=== PATIENT | female | born 1940 | race Caucasian/White ===

== ENCOUNTER 2023-11-30 14:57 | Emergency (ER) | payer BC ==
[2023-11-30 16:46] LABS: Absolute Eosinophils 0.3 K/uL (0-0.5); Absolute Lymphocytes (CBC) 1.8 K/uL (0.7-4.9); Absolute Monocytes 0.6 K/uL (0.1-1.3); Absolute Neutrophil 3.1 K/uL (1.8-8.0); Basophils % 0.7 % (0-1.3); Eosinophils % 4.4 % (0-4.4); Hematocrit 41.4 % (36.0-45.0); Hemoglobin 13.4 g/dL (12.0-15.0); Lymphocytes % 31.3 % (15.3-44.8); MCH 29.7 pg (27.0-35.0); MCHC 32.4 g/dL (32.0-36.0); MCV 91.7 fL (80-100); MPV 9.2 fL (7.6-11.3); Neutrophils % 53.6 % (41.7-73.7); Nucleated Red Blood Cells % 0.1 % (0-0); Platelets 182 thou/uL (152-406); RBC Red Blood Cell Count 4.51 M/uL (3.86-4.86); Red Cell Distribution Width 14.8 % (12.1-15.2)
[2023-11-30 16:58] LABS: ALT/SGPT 22 U/L (13-56); AST/SGOT 11 U/L (15-37); Albumin 3.6 g/dL (3.4-5.0); Alkaline Phosphatase 134 U/L (45-117); Anion Gap 5.2 mEq/L (5.0-15.0); BUN Blood Urea Nitrogen 19 mg/dL (7-18); Bicarbonate 35 mEq/L (21-32); Bilirubin Total 0.4 mg/dL (0.2-1.0); Globulin 3.5 g/dL (2.3-3.5); Glomerular Filtration Rate 65 ml/min (=/>90); Glucose Level 106 mg/dL (74-106); Magnesium 2.5 mg/dL (1.6-2.4); NT PRO-BNP 65 pg/mL (<450); Potassium 4.2 mEq/L (3.5-5.1); Protein, Total 7.1 g/dL (6.4-8.2); Sodium Level 140 mEq/L (136-145); Troponin High Sensitivity 4.2 pg/mL (<58.9)
[2023-11-30 17:03] LABS: Bilirubin Direct < 0.2 mg/dL (0-0.2); Bilirubin Indirect, Calculated 0.2 mg/dL (0.2-0.8)
[2023-11-30 17:33] LABS: PT Prothrombin Time 11.5 SECONDS (9.5-12.5); PTT, Activated Partial Thromb 44.3 SECONDS (24.3-36.9); Protime INR 1.05
--- NOTE | 2023-11-30 17:40 | RAD REPORT ---
EXAM DESCRIPTION: CT - Chest For Pe Angio - 11/30/2023 5:32 pm CLINICAL HISTORY: Chest pain. Chest pain;Dyspnea COMPARISON: Chest For Pe Angio dated 08/09/2023; Abdomen Pelvis W Contrast dated 08/10/2023 TECHNIQUE: CT angiogram of the pulmonary arteries was performed with MIP. All CT scans are performed using dose optimization technique as appropriate and may include automated exposure control or mA/KV adjustment according to patient size. FINDINGS: No evidence of pulmonary thromboembolism. No acute aortic finding demonstrated. Moderate atelectasis is present in the left base. No pulmonary nodules. Moderate chronic left pleural effusion. No concerning bony finding. Multiple hepatic masses partially visualized, known metastatic deposits. IMPRESSION: No evidence of pulmonary thromboembolism. Chronic moderate-size left pleural effusion. This appears mildly larger than on the 08/10/2023 study.
--- NOTE | 2023-11-30 18:14 | ER ---
Nurse's Notes [facility] Name: Malena Bernard Age: 83 yrs Sex: Female : 1940 Arrival Date: 11/30/2023 Time: 14:57 Bed 12 Private MD: Rd Osborne R Diagnosis: Malignant pleural effusion Presentation: 11/29 15:01 Chief complaint: Patient states: R sided rib cage pains for over 2 weeks. SOB also. ll1 Wants chest CT so she can see her MD tomorrow. Coronavirus screen: Client denies travel out of the [place] in the last 14 days. difficulty breathing, shortness of breath, Client presents with at least one sign or symptom that may indicate coronavirus-19. Standard/surgical mask placed on the client. Ebola Screen: Patient denies travel to an Ebola-affected area in the 21 days before illness onset. Initial Sepsis Screen: Does the patient meet any 2 criteria? No. Patient's initial sepsis screen is negative. Does the patient have a suspected source of infection? No. Patient's initial sepsis screen is negative. Risk Assessment: Do you want to hurt yourself or someone else? Patient reports no desire to harm self or others. Onset of symptoms was November 16, 2023. 15:01 Method Of Arrival: Ambulatory 1 15:01 Acuity: ARABELLA 3 ll1 Triage Assessment: 15:02 General: Appears uncomfortable, Behavior is calm, cooperative, appropriate for age. ll1 Pain: Complains of pain in R rib cage area Pain currently is 7 out of 10 on a pain scale. Quality of pain is described as aching. Respiratory: Reports shortness of breath labored breathing pain with respiration Onset: The symptoms/episode began/occurred 2 weeks. Historical: - Allergies: 15:01 No Known Allergies; ll1 - PMHx: 15:01 breast cancer; Chronic obstructive lung disease; Congestive heart failure; ll1 - PSHx: 15:01 Mastectomy; ll1 - Immunization history:: Adult Immunizations up to date. - Infectious Disease History:: Denies. - Social history:: Smoking status: Patient/guardian denies using tobacco. - Family history:: not pertinent. - Hospitalizations: : No recent hospitalization is reported. Screenin:57 [facility] ED Fall Risk Assessment (Adult) History of falling in the last 3 months, as6 including since admission No falls in past 3 months (0 pts) Confusion or Disorientation No (0 pts) Intoxicated or Sedated No (0 pts) Impaired Gait No (0 pts) Mobility Assist Device Used No (0 pt) Altered Elimination No (0 pt) Score/Fall Risk Level 0 - 2 = Low Risk Oriented to surroundings, Maintained a safe environment, Educated pt \T\ family on fall prevention, incl call for assistance when getting out of bed, Assessed \T\ reinforced patient's understanding of fall precautions. Abuse screen: Denies threats or abuse. Denies injuries from another. Nutritional screening: No deficits noted. Tuberculosis screening: No symptoms or risk factors identified. Vital Signs: 15:01 BP 156 / 84; Pulse 74; Resp 18; Temp 97.9; Pulse Ox 92% on R/A; Weight 90.72 kg; Height ll1 5 ft. 7 in. ; Pain 8/10; 18:13 BP 142 / 79; Pulse 64; Resp 18 S; Pulse Ox 99% on R/A; iw 15:01 Body Mass Index 31.32 (90.72 kg, 170.18 cm) ll1 15:01 Pain Scale: Adult ll1 ED Course: 15:00 Patient arrived in ED. rg4 15:01 Rd Osborne MD is Private Physician. rg4 15:01 Arm band placed on. ll1 15:05 Jay Rincon MD is Attending Physician. rn 15:06 Triage completed. ll1 16:17 Missed attempt(s): 24 gauge in left antecubital area. bc6 16:42 Hepatic Function Sent. em1 16:42 Magnesium Sent. em1 16:42 NT PRO-BNP Sent. em1 16:42 PT-INR Sent. em1 16:42 Ptt, Activated Sent. em1 16:42 Troponin HS Sent. em1 16:42 Basic Metabolic Panel Sent. em1 16:42 CBC with Diff Sent. em1 16:42 Initial lab(s) drawn, by me, sent to lab. Inserted saline lock: 20 gauge in right em1 forearm, using aseptic technique. Blood collected. 16:52 Dago Loja, VANCE is Primary Nurse. as6 17:33 CT Chest For PE Angio In Process Unspecified. EDMS 17:57 Bed in low position. Call light in reach. Provided Education on: follow up. as6 17:57 No provider procedures requiring assistance completed. as6 18:13 IV discontinued, intact, bleeding controlled, No redness/swelling at site. Pressure iw dressing applied. Administered Medications: No medications were administered Medication: 17:58 VIS not applicable for this client. as6 Outcome: 17:55 Discharge ordered by . rn 17:58 Discharged to home ambulatory, with family, as6 17:58 Condition: stable 18:13 Discharge instructions given to patient, Instructed on discharge instructions, follow iw up and referral plans. Demonstrated understanding of instructions, follow-up care, 18:14 Patient left the ED. iw Signatures: Dispatcher [employer] EDMS Paris Ervin RN RN iw Jay Rincon MD MD rn Martinez, Eric emLacey Andersen4 Onesimo Nowak RN RN ll1 Dago Loja RN RN as6 Alejandra Contreras [facility]
--- NOTE | 2023-11-30 18:14 | EDPHYS ---
Physician Documentation [facility] Name: Malena Bernard Age: 83 yrs Sex: Female : 1940 Arrival Date: 11/30/2023 Time: 14:57 Bed 12 Private MD: Rd Osborne R ED Physician Jay Rincon HPI: 11/29 16:15 This 83 yrs old Female presents to ER via Ambulatory with complaints of Shortness Of rn Breath, Pain. 16:15 The patient has shortness of breath at rest, with light activity. Onset: The rn symptoms/episode began/occurred 1 week(s) ago. Duration: The symptoms are intermittent. The patient's shortness of breath is aggravated by exertion, light activity, is alleviated by nothing. Severity of symptoms: At their worst the symptoms were moderate in the emergency department the symptoms have improved. The patient has experienced similar episodes in the past. Patient reports shortness of breath, worse with exertion, has been happening for months but worse over the last week. Associated with sharp stabbing pain with deep breath. Patient reports history of breast cancer status postmastectomy but reports metastases to the liver and lungs. Has had pleural effusion drainage in the past. Sees her cancer doctor tomorrow and has outpatient CT scan but was unable to obtain. Came in here to get CT given increase in shortness of breath. No hemoptysis. No history of DVT or PE.. Historical: - Allergies: 15:01 No Known Allergies; ll1 - PMHx: 15:01 breast cancer; Chronic obstructive lung disease; Congestive heart failure; ll1 - PSHx: 15:01 Mastectomy; ll1 - Immunization history:: Adult Immunizations up to date. - Infectious Disease History:: Denies. - Social history:: Smoking status: Patient/guardian denies using tobacco. - Family history:: not pertinent. - Hospitalizations: : No recent hospitalization is reported. ROS: 16:15 Constitutional: Negative for fever, chills, and weight loss, Cardiovascular: Positive rn for chest pain Respiratory: Positive for shortness of breath Abdomen/GI: Negative for abdominal pain, nausea, vomiting, diarrhea, and constipation, MS/Extremity: Negative for injury and deformity, Skin: Negative for injury, rash, and discoloration, Neuro: Positive for generalized weakness Exam: 16:15 Constitutional: This is a well developed, well nourished patient who is awake, alert, rn and in no acute distress. Head/Face: Normocephalic, atraumatic. ENT: No stridor Cardiovascular: Regular rate and rhythm. No pulse deficits. Respiratory: Mild tachypnea, no retractions, speaking full sentences. On home O2 Abdomen/GI: Soft, non-tender MS/ Extremity: Pulses equal, no cyanosis Neuro: Awake and alert, GCS 15 17:15 ECG was reviewed by the Attending Physician. rn Vital Signs: 15:01 BP 156 / 84; Pulse 74; Resp 18; Temp 97.9; Pulse Ox 92% on R/A; Weight 90.72 kg; Height ll1 5 ft. 7 in. ; Pain 8/10; 18:13 BP 142 / 79; Pulse 64; Resp 18 S; Pulse Ox 99% on R/A; iw 15:01 Body Mass Index 31.32 (90.72 kg, 170.18 cm) ll1 15:01 Pain Scale: Adult ll1 MDM: 15:05 Patient medically screened. rn 17:53 Differential diagnosis: pneumonia, Pneumothorax pulmonary edema, Pulmonary Embolism rn Pleural effusion. Antibiotic administration: Not indicated. Data reviewed: vital signs, nurses notes. Data reviewed: lab test result(s), radiologic studies. Consideration of Admission/Observation Escalation of care including admission/observation considered. Patient does not want to be admitted to the hospital. She has an appointment with her cancer doctor tomorrow and is going to ask for recommendations. Patient is currently off of her oxygen and denies any increase in oxygen requirement. Has known metastases with recurrent pleural effusion and she does not feel like she needs it emergently drained at this time as she has had in the past. No evidence of infection. Will discharge home with follow-up tomorrow. Given results and images printed on a disc for her cancer doctor to see tomorrow.. Care significantly affected by the following chronic conditions: Chronic Obstructive Pulmonary Disease, Cancer. Counseling: I had a detailed discussion with the patient and/or guardian regarding the historical points, exam findings, and any diagnostic results supporting the discharge/admit diagnosis, lab results, radiology results, the need for outpatient follow up, to return to the emergency department if symptoms worsen or persist or if there are any questions or concerns that arise at home. 11/29 15:22 Order name: CBC with Diff; Complete Time: 16:55 ll1 11/29 15:22 Order name: Basic Metabolic Panel; Complete Time: 17:07 ll1 11/29 15:22 Order name: Hepatic Function; Complete Time: 17:07 ll1 11/29 15:22 Order name: Magnesium; Complete Time: 17:07 ll1 11/29 15:22 Order name: NT PRO-BNP; Complete Time: 17:07 ll11/29 15:22 Order name: PT-INR; Complete Time: 17:34 ll1 11/29 15:22 Order name: Ptt, Activated; Complete Time: 17:34 ll1 11/29 15:22 Order name: Troponin HS; Complete Time: 17:07 ll1 11/29 15:22 Order name: CT Chest For PE Angio; Complete Time: 17:41 ll1 11/29 15:22 Order name: EKG; Complete Time: 15:22 ll1 11/29 15:22 Order name: IV Start; Complete Time: 16:42 ll11/29 15:22 Order name: Cardiac monitoring; Complete Time: 17:22 ll11/29 15:22 Order name: EKG - Nurse/Tech; Complete Time: 17:22 ll1 11/29 15:22 Order name: Labs collected and sent; Complete Time: 16:42 ll11/29 15:22 Order name: O2 Per Protocol; Complete Time: 17:22 ll11/29 15:22 Order name: O2 Sat Monitoring; Complete Time: 17:22 ll1 EC:15 Rate is 70 beats/min. Rhythm is regular. QRS [place] is Normal. MD interval is normal. QRS rn interval is normal. QT interval is normal. No Q waves. T waves are Normal. No ST changes noted. Clinical impression: NSR w/ Non-specific ST/T Changes. Interpreted by me. Reviewed by me. Administered Medications: No medications were administered Disposition Summary: 11/30/23 17:55 Discharge Ordered Notes: Location: Home rn Problem: an ongoing problem rn Symptoms: are unchanged rn Condition: Stable rn Diagnosis - Malignant pleural effusion rn Followup: rn - With: Private Physician - When: As needed - Reason: Recheck today's complaints, Re-evaluation by your physician Discharge Instructions: - Discharge Summary Sheet rn - Pleural Effusion rn Forms: - Medication Reconciliation Form rn - Antibiotic help desk internship - Prescription Opioid Use rn - Patient Portal Instructions rn - Leadership Thank You Letter rn Signatures: Dispatcher [employer] Jay Villanueva MD MD rn Lewis, Lynsay, RN RN ll1
[2023-11-30 18:48] VITALS: BP 142/79; TEMP 97.9; O2SAT 99
== END 2023-11-30 18:14 | disposition home or self-care (01) ==
LOC: ER 14:57
DX: C50.919 Malignant neoplasm of unspecified site of unspecified female breast (principal); C78.7 Secondary malignant neoplasm of liver and intrahepatic bile duct; C78.00 Secondary malignant neoplasm of unspecified lung; J91.0 Malignant pleural effusion
CPT/HCPCS: 36415; 71275; 80048; 80076; 83735; 83880; 84484; 85025; 85610; 85730; 93005; Q9967

== ENCOUNTER 2023-12-17 10:25 | Emergency (ER) | payer BC ==
[2023-12-17 11:03] LABS: Absolute Eosinophils 0.3 K/uL (0-0.5); Absolute Monocytes 0.5 K/uL (0.1-1.3); Absolute Neutrophil 3.8 K/uL (1.8-8.0); Basophils % 0.5 % (0-1.3); Eosinophils % 3.9 % (0-4.4); Hematocrit 41.4 % (36.0-45.0); Hemoglobin 12.9 g/dL (12.0-15.0); Lymphocytes % 30.5 % (15.3-44.8); MCH 29.1 pg (27.0-35.0); MCV 93.7 fL (80-100); MPV 9.5 fL (7.6-11.3); Monocytes % 7.5 % (3.3-12.3); Neutrophils % 57.6 % (41.7-73.7); Platelets 170 thou/uL (152-406); RBC Red Blood Cell Count 4.42 M/uL (3.86-4.86); Red Cell Distribution Width 15.1 % (12.1-15.2)
[2023-12-17 11:09] LABS: Protime INR 1.09
--- NOTE | 2023-12-17 11:14 | RAD REPORT ---
EXAM DESCRIPTION: CT - Thorax W/ Con CLINICAL HISTORY: Chest pain pleural effusion COMPARISON: Chest For Pe Angio dated 11/30/2023; Abdomen Pelvis W Contrast dated 08/10/2023; Chest F or Pe Angio dated 08/09/2023; Abdomen W/Wo Contrast dated 05/06/2022 FINDINGS: Mild linear atelectasis is present in the left lung base. Moderate chronic left pleural ef fusion noted appearing unchanged since 11/30/2023 study. No pneumothorax. No axillary, mediastinal or hilar adenopathy. No concerning bony finding. Numerous masses are present in the liver parenchyma, unchanged All CT scans are performed using dose optimization technique as appropriate and may include automated exposure control or mA/KV adjustment according to patient size. IMPRESSION: Chronic moderate-size left pleural effusion left basilar atelectasis, stable since 11/29.No new or progressive intrathoracic abnormality. Numerous hepatic lesions also grossly unchanged since prior study, incompletely assessed
[2023-12-17 11:22] LABS: Albumin 3.5 g/dL (3.4-5.0); Anion Gap 5.5 mEq/L (5.0-15.0); Bilirubin Direct 0.2 mg/dL (0-0.2); Bilirubin Indirect, Calculated 0.3 mg/dL (0.2-0.8); Bilirubin Total 0.5 mg/dL (0.2-1.0); Globulin 3.5 g/dL (2.3-3.5); Magnesium 2.3 mg/dL (1.6-2.4); Potassium 4.5 mEq/L (3.5-5.1); Troponin High Sensitivity 5.4 pg/mL (<58.9)
--- NOTE | 2023-12-17 12:04 | EDPHYS ---
Physician Documentation [facility] Name: Malena Bernard Age: 83 yrs Sex: Female : 1940 Arrival Date: 12/17/2023 Time: 10: Bed 14 Private MD: ED Physician Huseyin Huntley HPI: 12/16 10:55 This 83 yrs old Female presents to ER via Wheelchair with complaints of Fluid build up. rt 10:55 Patient with previous history of malignant pleural effusion with 1 previous rt thoracentesis presents to the ED with worsening pain to the left side, difficulty breathing. States that she feels that the effusion is worsening. Denies leg swelling. Denies other acute complaints at this time, symptoms are moderate in severity, no other aggravating or alleviating factors.. Historical: - Allergies: 10:42 No Known Allergies; ll1 - PMHx: 10:42 breast cancer; Chronic obstructive lung disease; Congestive heart failure; Diabetes ll1 mellitus; - PSHx: 10:42 Mastectomy; ll1 - Immunization history:: Adult Immunizations up to date. - Infectious Disease History:: Denies. - Social history:: Smoking status: Patient/guardian denies using tobacco. - Family history:: not pertinent. ROS: 10:55 Constitutional: Negative for fever, chills, and weight loss, Abdomen/GI: Negative for rt abdominal pain, nausea, vomiting, diarrhea, and constipation, MS/Extremity: Negative for injury and deformity, Skin: Negative for injury, rash, and discoloration, Neuro: Negative for headache, weakness, numbness, tingling, and seizure, 10:55 Cardiovascular: Positive for chest pain, Negative for edema, 10:55 Respiratory: Positive for cough, shortness of breath, Exam: 10:55 Constitutional: This is a well developed, well nourished patient who is awake, alert, rt and in no acute distress. Head/Face: Normocephalic, atraumatic. Chest/axilla: Normal chest wall appearance and motion. Nontender with no deformity. No lesions are appreciated. Cardiovascular: Regular rate and rhythm with a normal S1 and S2. No gallops, murmurs, or rubs. Normal PMI, no JVD. No pulse deficits. Abdomen/GI: Soft, non-tender, with normal bowel sounds. No distension or tympany. No guarding or rebound. No evidence of tenderness throughout. Skin: Warm, dry with normal turgor. Normal color with no rashes, no lesions, and no evidence of cellulitis. MS/ Extremity: Pulses equal, no cyanosis. Neurovascular intact. Full, normal range of motion. Neuro: Awake and alert, GCS 15, oriented to person, place, time, and situation. Cranial nerves II-XII grossly intact. Motor strength 5/5 in all extremities. Sensory grossly intact. Cerebellar exam normal. Normal gait. 10:55 Respiratory: Diminished breath sounds at the left lower lung base, otherwise clear, 13:17 ECG was reviewed by the Attending Physician. rt Vital Signs: 10:40 BP 147 / 62; Pulse 70; Resp 18; Temp 98.7(TE); Pulse Ox 97% on 2 lpm NC; Weight 92.08 ll1 kg; Height 5 ft. 7 in. ; Pain 8/10; 11:39 BP 163 / 70; Pulse 69; Resp 16 S; Pulse Ox 96% on R/A; as6 10:40 Body Mass Index 31.79 (92.08 kg, 170.18 cm) ll1 10:40 Pain Scale: Adult ll1 MDM: 10:38 Patient medically screened. rt 13:17 Differential Diagnosis Pleural effusion, pneumonia, CHF. Data reviewed: vital signs, rt nurses notes, lab test result(s), EKG, radiologic studies. Independent interpretation of the following test(s) in the Emergency Department CT Scan: My interpretation is Pleural effusion seen on interpretation of CT scan images. Care significantly affected by the following chronic conditions: Metastatic breast cancer, CHF. Counseling: I had a detailed discussion with the patient and/or guardian regarding the historical points, exam findings, and any diagnostic results supporting the discharge/admit diagnosis, lab results, radiology results, the need for outpatient follow up, to return to the emergency department if symptoms worsen or persist or if there are any questions or concerns that arise at home. ED course: CT scan is unchanged in size of pleural effusion. I looked with a bedside ultrasound, I do not see a window that I feel is safe for me to perform thoracentesis. Discussed this with the patient. She will follow-up as previously scheduled.. 12/16 10:46 Order name: Basic Metabolic Panel; Complete Time: 11:23 rt 12/16 10:46 Order name: CBC with Diff; Complete Time: 11:14 rt 12/16 10:46 Order name: LFT's; Complete Time: 11:23 rt 12/16 10:46 Order name: Magnesium; Complete Time: 11:23 rt 12/16 10:46 Order name: NT PRO-BNP; Complete Time: 11:23 rt 12/16 10:46 Order name: Troponin HS; Complete Time: 11:23 rt 12/16 10:48 Order name: PT-INR; Complete Time: 11:14 rt 12/16 10:46 Order name: CT Chest W/ Con; Complete Time: 11:14 rt 12/16 10:46 Order name: EKG; Complete Time: 10:47 rt 12/16 10:46 Order name: Cardiac monitoring; Complete Time: 11: rt 12/16 10:46 Order name: EKG - Nurse/Tech; Complete Time: 11:25 rt 12/16 10:46 Order name: IV Saline Lock; Complete Time: 10:56 rt 12/16 10:46 Order name: Labs collected and sent; Complete Time: 10:56 rt 12/16 10:46 Order name: O2 Per Protocol; Complete Time: 10:47 rt 12/16 10:46 Order name: O2 Sat Monitoring; Complete Time: 10:47 rt EC:17 Rate is 66 beats/min. Rhythm is regular, Normal Sinus Rhythm with No ectopy. QRS [place] rt is Normal. CT interval is normal. QRS interval is normal. QT interval is normal. No Q waves. T waves are Normal. No ST changes noted. Interpreted by me. Administered Medications: No medications were administered Disposition Summary: 12/17/23 12:04 Discharge Ordered Notes: Location: Home rt Problem: new rt Symptoms: are unchanged rt Condition: Stable rt Diagnosis - Malignant pleural effusion rt Followup: rt - With: Private Physician - When: 2 - 3 days - Reason: Discharge Instructions: - Discharge Summary Sheet rt - Pleural Effusion rt Forms: - Medication Reconciliation Form rt - Antibiotic Education rt - Prescription Opioid Use rt - Patient Portal Instructions rt - Leadership Thank You Letter rt Signatures: Dispatcher [employer] Onesimo Polanco RN RN ll1 Huseyin Huntley MD MD rt
--- NOTE | 2023-12-17 12:04 | ER ---
Nurse's Notes [facility] Name: Malena Bernard Age: 83 yrs Sex: Female : 1940 Arrival Date: 12/17/2023 Time: 10:25 Bed 14 Private MD: Diagnosis: Malignant pleural effusion Presentation: 12/16 10:40 Chief complaint: Patient states: SOB with exertion, no fever. States fluid build-up in ll1 lungs is worse than usual. Coronavirus screen: Client denies travel out of the [place] in the last 14 days. difficulty breathing, shortness of breath, Client presents with at least one sign or symptom that may indicate coronavirus-19. Standard/surgical mask placed on the client. Ebola Screen: Patient denies travel to an Ebola-affected area in the 21 days before illness onset. Initial Sepsis Screen: Does the patient meet any 2 criteria? No. Patient's initial sepsis screen is negative. Does the patient have a suspected source of infection? No. Patient's initial sepsis screen is negative. Risk Assessment: Do you want to hurt yourself or someone else? Patient reports no desire to harm self or others. Onset of symptoms was December 13, 2023. 10:40 Method Of Arrival: Wheelchair ll1 10:40 Acuity: ARABELLA 3 ll1 Triage Assessment: 10:43 General: Appears in no apparent distress. Behavior is calm, cooperative, appropriate ll1 for age. General: Reports fatigue for. Pain: Complains of pain in all over Pain currently is 8 out of 10 on a pain scale. Quality of pain is described as aching. Neuro: Reports weakness. Respiratory: Reports shortness of breath on exertion labored breathing "fluid build-up" the patient has moderate shortness of breath. Historical: - Allergies: 10:42 No Known Allergies; ll1 - PMHx: 10:42 breast cancer; Chronic obstructive lung disease; Congestive heart failure; Diabetes ll1 mellitus; - PSHx: 10:42 Mastectomy; ll1 - Immunization history:: Adult Immunizations up to date. - Infectious Disease History:: Denies. - Social history:: Smoking status: Patient/guardian denies using tobacco. - Family history:: not pertinent. Screenin:57 [facility] ED Fall Risk Assessment (Adult) History of falling in the last 3 months, as6 including since admission No falls in past 3 months (0 pts) Confusion or Disorientation No (0 pts) Intoxicated or Sedated No (0 pts) Impaired Gait No (0 pts) Mobility Assist Device Used Yes (1 pt) Altered Elimination No (0 pt) Score/Fall Risk Level 0 - 2 = Low Risk Oriented to surroundings, Maintained a safe environment, Educated pt \\T\\ family on fall prevention, incl call for assistance when getting out of bed, Assessed \\T\\ reinforced patient's understanding of fall precautions. Abuse screen: Denies threats or abuse. Denies injuries from another. Nutritional screening: No deficits noted. Tuberculosis screening: No symptoms or risk factors identified. Assessment: 11:38 Reassessment: Patient appears in no apparent distress at this time. no complaints or as6 concerns at this time. Respiratory: Reports shortness of breath. Vital Signs: 10:40 BP 147 / 62; Pulse 70; Resp 18; Temp 98.7(TE); Pulse Ox 97% on 2 lpm NC; Weight 92.08 ll1 kg; Height 5 ft. 7 in. ; Pain 8/10; 11:39 BP 163 / 70; Pulse 69; Resp 16 S; Pulse Ox 96% on R/A; as6 10:40 Body Mass Index 31.79 (92.08 kg, 170.18 cm) ll1 10:40 Pain Scale: Adult ll1 ED Course: 10:28 Patient arrived in ED. im 10:31 Dago Loja, VANCE is Primary Nurse. as6 10:31 Arm band placed on Patient placed in an exam room, on a stretcher. ll1 10:32 Huseyin Huntley MD is Attending Physician. rt 10:42 Triage completed. ll1 10:45 Bed in low position. Call light in reach. Side rails up X 1. as6 10:56 PT-INR Sent. as6 10:56 Basic Metabolic Panel Sent. as6 10:56 CBC with Diff Sent. as6 10:56 LFT's Sent. as6 10:56 Magnesium Sent. as6 10:56 NT PRO-BNP Sent. as6 10:56 Troponin HS Sent. as6 10:56 Inserted saline lock: 20 gauge in right antecubital area, using aseptic technique. as6 Blood collected. 11:05 CT Chest W/ Con In Process Unspecified. EDMS 12:15 Provided Education on: follow up. as6 12:15 No provider procedures requiring assistance completed. IV discontinued, intact, as6 bleeding controlled, No redness/swelling at site. Pressure dressing applied. Administered Medications: No medications were administered Medication: 10:45 VIS not applicable for this client. as6 Outcome: 12:04 Discharge ordered by . rt 12:16 Discharged to home via wheelchair, with family, as6 12:16 Condition: stable 12:16 Discharge instructions given to patient, Instructed on discharge instructions, follow up and referral plans. Demonstrated understanding of instructions, follow-up care, 12:16 Patient left the ED. as6 Signatures: Dispatcher [employer] EDOnesimo Fowler RN RN ll1 Dago Loja RN RN as6 Huseyin Huntley MD MD rt Tesha Sepulveda im Corrections: (The following items were deleted from the chart) 10:43 10:40 BP 147 / 62; Pulse 70bpm; Resp 18bpm; Pulse Ox 97% RA; Temp 98.7F Temporal; 92.08 ll1 kg; Height 5 ft. 7 in.; BMI: 31.7; Pain 8/10, Adult; ll1
[2023-12-17 12:23] VITALS: BP 163/70; TEMP 98.7; O2SAT 96
--- NOTE | 2023-12-21 09:06 | EKG ---
Test Date: 2023-12-17 Test Time: 11:21:41 [employer]: MEASUREMENT RESULTS: Intervals: Rate: 66 VT: 192 QRSD: 88 QT: 396 QTc: 415 Beattie: P: 62 VT: 192 QRS: 22 T: 54 INTERPRETIVE STATEMENTS: Normal sinus rhythm Low voltage QRS Borderline ECG Compared to ECG 11/30/2023 17:12:12 Low QRS voltage now present Myocardial infarct finding no longer present Electronically Signed On 12-21-23 09:05:07 CDT by Bobby Mae
== END 2023-12-17 12:16 | disposition home or self-care (01) ==
LOC: ER 10:25
DX: C50.919 Malignant neoplasm of unspecified site of unspecified female breast (principal); J91.0 Malignant pleural effusion; I50.9 Heart failure, unspecified
CPT/HCPCS: 36415; 71260; 80048; 80076; 83735; 83880; 84484; 85025; 85610; 93005; 99283; Q9967

== ENCOUNTER 2024-01-06 12:21 | Day surgery (SDC) | payer BC ==
[2024-01-06] MEDS ORDERED: CEFAZOLIN SODIUM 2 GM/VIAL ONE (12:40)
[2024-01-06] MEDS: Ringers Lactate 1,000 ML IV ONE (12:45)
[2024-01-06] MEDS ORDERED: FENTANYL CITR 100 MCG/2 ML ONE (14:17)
[2024-01-06] MEDS ORDERED: ONDANSETRON 4 MG/2 ML VIAL ONE (14:17)
[2024-01-06] MEDS ORDERED: LIDOCAINE 2% MPF 5 ML VIAL ONE (14:17)
[2024-01-06] MEDS ORDERED: propofoL 200 MG/20 ML VIAL IV ONE (14:17)
[2024-01-06] MEDS: LIDOCAINE HCL/EPINEPHRINE 20 ML MDV ONE (14:55)
--- NOTE | 2024-01-06 15:14 | P.OP ---
Preoperative diagnosis: LEFT Pleural Effusion Postoperative diagnosis: LEFT Pleural Effusion Primary procedure: Placement of Tunneled Pleur-X Catheter in LEFT thoracic cavity Anesthesia: MAC + Local Estimated blood loss: <1cc Specimen: straw colored pleural fluid Findings: straw colored pleural fluid, 1 liter removed Implants: Pleur-X Thoracic Catheter Transferred to: Recovery Room Condition: Good
[2024-01-06] MEDS: MORPHINE 4 MG/ML SYR ONE (15:40)
--- NOTE | 2024-01-06 16:28 | RAD REPORT ---
[facility]12 [facility] CLINICAL HISTORY: Device placement/ pleural catheter placement IMPRESSION: Tip of a pleural catheter lies within the upper left hemithorax. Probable small left apical pneumothorax
[2024-01-06 19:14] LABS: Appearance SLT. TURBID (CLEAR); Body Fluid Source PLEURAL; Color of Supernate Not Xanthochromic (Not Xantho); Color of fluid Yellow (COLORLESS); Tube # SINGLE
[2024-01-06 19:15] VITALS: BP 150/44; TEMP 98.3; O2SAT 93
[2024-01-06 19:15] LABS: Body Fluid Lymphocytes 95 %; Body Fluid WBC 916 /mm^3; Fluid Total Cells Count 100
--- NOTE | 2024-01-06 23:21 | OP ---
Date of Procedure: 01/06/2024 Surgeon: James Davis MD, Preoperative Diagnosis: Left pleural effusion. Postoperative Diagnosis: Left pleural effusion. Procedure Performed: Placement of a tunneled PleurX catheter in the left thoracic cavity. Anesthesia: MAC plus local 1% lidocaine with epinephrine. Estimated Blood Loss: 1 cc. Specimens: Straw-colored pleural fluid. Findings: Straw-colored pleural fluid, 1 L removed. Implants: PleurX tunneled thoracic catheter. Disposition: The patient was transferred to recovery room in good condition. Procedure In Detail: After informed consent was obtained, the patient was brought to the operating r oom, prepped and draped in usual sterile fashion. After adequate anesthesia was achieved, anesthetiz ed the area of the fifth and sixth intercostal space at the midaxillary line with 1% lidocaine and th en made an incision overlying this and passing a finder needle over the rib, I cannulated the thoraci c cavity on the first attempt. Straw-colored nonbloody fluid was appreciated immediately. I then pl aced a wire into this cavity at this point, removed the introducer sheath. At this point, I brought in the tunneling device, anesthetized the tract on the anteromedial aspect of the previous insertion site, made a small counter incision and passed the tunneling device with catheter through at the inse rtion site. At this point, I performed sequential dilatation, placed an introducer sheath, then pass ed the catheter into the chest cavity at this point without incident or complication. The introducer sheath was removed. Straw-colored fluid was immediately encountered. No bloody fluid was appreciat ed throughout. I then sent the fluid for analysis as well as pulled 1 L of straw-colored fluid into a VAC container. At this point, a sterile dressing was placed over top after closing the insertion s ite using interrupted 3-0 silk sutures. The patient tolerated procedure without incident or complica tion, and transferred to PACU in good condition. All counts were correct at the end of the case. TK/MODL Voice ID: [id number] Report ID: [id number]
== END 2024-01-06 16:30 | disposition home or self-care (01) ==
LOC: OR 12:21
PROVIDERS: ATTEND Surgery
PROC: 0W9B30Z Drainage of Left Pleural Cavity with Drainage Device, Percutaneous Approach (ICD-10-PCS; principal; 2024-01-06 15:00)
DX: J90 Pleural effusion, not elsewhere classified (principal); Z45.2 Encounter for adjustment and management of vascular access device
CPT/HCPCS: 36415; 71045; 82945; 83615; 84157; 84311; 87015; 87102; 87116; 87205; 87206; 88108; 88305; 89050; J2001; J2405; J2704; J3010; J7120